=== PATIENT | male | born 1995 | race Caucasian/White ===

== ENCOUNTER 2023-03-24 23:37 | Emergency (ER) | payer OTHER, SELFPAY ==
[2023-03-24 23:39] VITALS: BP 149/94; PULSE 100; RESP 18; TEMP 36.2; O2SAT 98
--- NOTE | 2023-03-25 00:10 | ED.NURSE ---
Wound irrigated and dressed with vaseline by NA. Liz
--- NOTE | 2023-03-25 00:11 | ED_ITS ---
HPI - General Adult General Chief complaint: Animal Bite Stated complaint: Dog bite lip Time Seen by Provider: 03/24/23 23:58 Source: patient and family Mode of arrival: ambulatory History of Present Illness HPI narrative: Patient presents to the ED about 30 minutes after a laceration to his lower lip. He reports that he was play wrestling with his dog when the dog accidentally bit the patient's lower lip while they were both going for a toy. This caused bleeding and a visible defect in the lower lip. Patient has applied pressure and the bleeding has slowed but not stop completely. The dog is fully up-to-date on his shots, is exhibiting no abnormal behavior. The dog with simply just excited at the time. Patient's last tetanus shot was 2016. He has a little bit of tenderness in the lower left canine tooth area but has not noticed any loose teeth or signs of fracture. No oral bleeding. He has no difficulty speaking or swallowing. No injury to the other areas of the face. Reports benign past medical history, no long-term medications, no anticoagulants. Last tetanus 2016. ROS negative for other HEENT, skin or generalized in stories or concerns today Related Data Home Medications Medication Instructions Recorded Confirmed No Known Home Medications 03/24/23 03/24/23 Allergies Allergy/AdvReac Type Severity Reaction Status Date / Time No Known Drug Allergies Allergy Verified 03/24/23 23:42 Exam Const: Vital Signs, click to edit/add: Vital Signs - 24 hr 03/24/23 23:39 Temperature 97.1 F L Pulse Rate [Left P ulse Oximeter] 100 Respiratory Rate 18 Blood Pressure [Ri ght Upper Arm] 149/94 H Pulse Oximetry 98 Oxygen Delivery Me thod Room Air Documenting provider has reviewed patient's vital signs: yes Common norm als: no apparent distress HENMT: Common normals: normocephalic Head and scalp: normocephalic Other: facial bones appear normal with no bruising or injury. Normal visual gaze and contact. Nares appear normal. On the lower lip there is a 10 mm total vertical laceration to the lower lip. It is obscuring only the epidermis at the vermilion border but both the dermis and epidermis on the full part of the lower lip. The wound does not gape and at the moment is fully hemostatic. There is no evidence of foreign body. It does not go through the inner oral mucosa. The inner mouth shows no signs of fractured teeth, loose teeth, injury to the gum, tongue or oral mucosa in any way. Eye: Common normals: conjunctivae normal General eye: normal appearance of both eyes Conjunctiva: conjunctiva(e) normal Neck & C-Spine: General: normal visual inspection Resp: Common normals: normal respiratory effort Effort & inspection: able to speak in complete sentences Psych: Common normals: thought process normal Attitude: engaged Activity/motor behavior: appropriate eye contact Thought process: normal thought process Insight: insight good Judgement: judgment good Skin: Narrative: Other than that small laceration on the lower lip, no other areas of injury noted Course Course ED Course: wound was gently washed with tap water and gauze, confirmed only epidermis thickness at the vermilion border. No gaping noted. Hemostatic. Will not benefit from any type of closure. Counseled patient and significant other regarding this. Tetanus confirmed up-to-date. Confirm that the dog is up-to-date on rabies vaccines and can be monitored. No other signs of non accidental trauma. Recommend conservative management. Discussed wound care with thick layer of Vaseline and thing should close up within about 48 hours. Alarm symptoms reviewed that would warrant ED presentation. Vital Signs Vital signs: Initial Vital Signs Temperature 97.1 F L 03/24/23 23:39 Temperature Source Temporal Artery Scan 03/24/23 23:39 Pulse Rate 100 03/24/23 23:39 Pulse Rhythm Regular 03/24/23 23:39 Respiratory Rate 18 03/24/23 23:39 Blood Pressure 149/94 H 03/24/23 23:39 Blood Pressure Mean 112 H 03/24/23 23:39 Blood Pressure Position Sitting 03/24/23 23:39 Pulse Oximetry 98 03/24/23 23:39 Oxygen Delivery Method Room Air 03/24/23 23:39 Vital Signs Temperature 97.1 F L 03/24/23 23:39 Pulse Rate 100 03/24/23 23:39 Respiratory Rate 18 03/24/23 23:39 Blood Pressure 149/94 H 03/24/23 23:39 Pulse Oximetry 98 03/24/23 23:39 Oxygen Delivery Method Room Air 03/24/23 23:39 Temperature 97.1 F L 03/24/23 23:39 Pulse Rate 100 03/24/23 23:39 Respiratory Rate 18 03/24/23 23:39 Blood Pressure 149/94 H 03/24/23 23:39 Pulse Oximetry 98 03/24/23 23:39 Oxygen Delivery Method Room Air 03/24/23 23:39 Discharge Plan Discharge Clinical Impression: Laceration of lip Patient Disposition: Home w/ Parent or Adult Condition: Stable Additional Instructions: as we discussed, the cut is thicker in the meaty part of the lip, but not very deep at the junction where the skin meets the lip. This will actually not benefit from stitches. It will close up on its own within about 48 hours. Use care and caution when opening the mouth widely, brushing the teeth, etc.. Keep the cut covered with a thick layer of Vaseline to reduce pain and help with healing. A little bit of bleeding and oozing may be common. Hold pressure if this occurs and come into the ED if you cannot get the bleeding to slow within 30 minutes. It is okay to use Tylenol and/or ibuprofen to help with pain. If you continue to have some tenderness along the tooth and gum area, I would make a non urgent appointment with the dentist. Your last tetanus shot was 2016 and does not need to be updated today. Activity Level: Activity as Tolerated Discharge Diet: Regular Prescriptions: No Action No Known Home Medications Stand Alone Forms: [employer] Info Instructions
--- NOTE | 2023-03-25 00:24 | ED.NURSE ---
Call to [facility] non-emergency line to report dog bite. [place] to reach out to patient via phone call. Pt aware. Pt given d/c instructions and verbalizes understanding. Pt leaves ER ambulatory, accompanied by significant other.
== END 2023-03-25 00:28 | disposition home or self-care (01) ==
LOC: ED 03-25 00:26
PROVIDERS: Emergency Provider Family Medicine
DX: S01.551A Open bite of lip, initial encounter (principal); W54.0XXA Bitten by dog, initial encounter
CPT/HCPCS: 99282; 99283